=== PATIENT | female | born 1955 | race Two or more races ===

== ENCOUNTER 2016-08-04 16:29 | Emergency (ER) | payer OTHER ==
[~2016-08-04] VITALS: Ht 154.9 cm; Wt 65.8 kg
[2016-08-04 18:00] VITALS: BP 161/89
--- NOTE | 2016-08-04 19:59 | PHYS DOC ---
Past Medical History Past Medical History: Diabetes-Type II, High Cholesterol, Hypertension Past Surgical History: No Surgical History Additional Information: nonsmoker Alcohol Use: None Drug Use: None Adult General Chief Complaint Chief Complaint: MECHANICAL FALL HPI HPI Patient is a 61 year old female who presents with right shoulder pain for 4 days. She was working cleaning a house and standing on the stairs. She started to fall and reached out with her right arm to grab the railing to keep from falling. She did not actually fall. She reports intermittent tingling in the fingers of the right hand and decreased strength on the right. She has pain in the right wrist on the ulnar side. She denies numbness or pain in the neck. She is right-hand dominant. She sees a PCP at [facility] [place]. Review of Systems Review of Systems Constitutional: Denies fever or chills. [] Musculoskeletal: Denies back pain. Reports right shoulder and right wrist pain. Integument: Denies rash or skin lesions. [] Neurologic: Denies headache or numbness. Reports intermittent tingling and decreased strength in the right arm. Allergies Allergies Allergies Coded Allergies Type Severity Reaction Last Updated Verified No Known Drug Allergies 08/04/16 No Physical Exam Physical Exam Constitutional: Well developed, well nourished, no acute distress, non-toxic appearance. [] HENT: Normocephalic, atraumatic, oropharynx moist. [] Eyes: PERRLA, EOMI, conjunctiva normal, no discharge. [] Neck: Normal range of motion, no midline or paraspinal tenderness, supple, no stridor. [] Skin: Warm, dry, no erythema, no rash. [] Back: No midline tenderness, no CVA tenderness. Right rhomboid tenderness. Extremities: Right shoulder and right wrist tenderness, ROM decreased in the shoulder and wrist, no edema. Distal pulses equal bilaterally. Less than 2 second capillary refill in the fingers. Light touch sensation intact in the fingers. There is no scaphoid tenderness. Neurologic: Alert and oriented X 3, normal motor function, normal sensory function, no focal deficits noted. [] Psychologic: Affect normal, judgement normal, mood normal. [] Current Patient Data Vital Signs Vital Signs Date Time Temp Pulse Resp B/P Pulse Ox O2 Delivery O2 Flow Rate FiO2 08/04/16 18:00 98.5 77 18 96 Room Air 98.5 EKG EKG [] Radiology/Procedures Radiology/Procedures Three-view x-rays of the right wrist and shoulder reviewed and interpreted by myself with Dr. Tony. There are no acute fractures or dislocations. Course & Med Decision Making Course & Med Decision Making Pertinent Labs and Imaging studies reviewed. (See chart for details) Patient presents with right shoulder pain after nearly falling 3 days ago. On exam, she is neurovascularly intact without evidence of compartment syndrome. There are no acute fractures or dislocations on x-ray. She is discharged with a cockup wrist brace. She is given prescriptions for Robaxin and Ultram. She is given contact information for orthopedics. She has instructions to follow up with [facility] for Worker's Compensation. Return precautions were discussed. She verbalizes understanding and agrees with plan. Dragon Disclaimer Dragon Disclaimer This electronic medical record was generated, in whole or in part, using a voice recognition dictation system. Departure Departure Impression: Primary Impression: Right shoulder strain Additional Impression: Right wrist sprain Disposition: 01 HOME, SELF-CARE Condition: STABLE Referrals: BAILEY DELONG II, MD Patient Instructions: Shoulder Pain, [id number], Wrist Pain, [id number] Additional Instructions: There were no broken bones or dislocations seen on your x-rays. Please wear the provided wrist brace to help decrease your pain. To help your shoulder pain, apply heat, practice gentle stretching, and light massage. Avoid heavy lifting or bending. Please follow-up with [facility] for Worker's Compensation. Please follow-up with the orthopedic doctor listed below if your pain continues. Please take the prescribed medication as instructed. Do not operate heavy machinery or drive while taking these medications. Return to the emergency department if you have any new or concerning symptoms. Scripts Methocarbamol (Robaxin)500 Mg [id number] Mg PO QID #20 TAB Prov:STEVE WILSON 08/04/16 Tramadol Hcl (Ultram)50 Mg [id number] Mg PO Q6H PRN PAIN #20 TAB Prov:STEVE WILSON 08/04/16 Problem Qualifiers Primary Impression: Right shoulder strain Encounter type: initial encounter Qualified Code: S46.911A - Strain of unspecified muscle, fascia and tendon at shoulder and upper arm level, right arm , initial encounter Additional Impression: Right wrist sprain Encounter type: initial encounter Qualified Code: S63.501A - Unspecified sprain of right wrist, initial encounter STEVE WILSON Aug 04, 2016 19:59
[2016-08-04] MEDS ORDERED: TRAM-29 PO (20:01)
[2016-08-04] MEDS ORDERED: METH-37 PO (20:01)
--- NOTE | 2016-08-05 08:38 | RAD ---
Exam performed:3 views right wrist and right shoulder Indication:Right shoulder and wrist pain, status post fall 3 days ago Date of service:08/04/16. Comparison:None available 3 views right wrist findings: AP radiographs of the shoulder in internal and external rotation as well as a Y-view reveal the osseous structures to be intact and well aligned. Early degenerative changes are seen about the acromioclavicular joint. There is a linear calcification along the lateral aspect of the humeral head probably calcific tendinosis The articular margins are smooth. Impression: 1. 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 2. Probable calcific tendinosis End impression. 3 views right wrist findings: Normal alignment of the wrist joint is preserved. There is no acute fracture or dislocation. Diffuse soft tissue swelling is seen. No foreign body. Impression: 1. Diffuse soft tissue swelling without underlying bony abnormality.
== END 2016-08-04 20:10 | disposition home or self-care (01) ==
LOC: ER 16:29
DX: S46.911A Strain of unspecified muscle, fascia and tendon at shoulder and upper arm level, right arm, initial encounter (principal); S63.501A Unspecified sprain of right wrist, initial encounter; E11.9 Type 2 diabetes mellitus without complications; E78.00 Pure hypercholesterolemia, unspecified; I10 Essential (primary) hypertension; W10.9XXA Fall (on) (from) unspecified stairs and steps, initial encounter; Y93.89 Activity, other specified; Y92.89 Other specified places as the place of occurrence of the external cause; Y99.8 Other external cause status
CPT/HCPCS: 29125; 73030; 73110; 99284-25

== ENCOUNTER 2021-04-13 11:33 | Emergency (ER) | payer MEDICARE, OTHER ==
[~2021-04-13] VITALS: Ht 154.9 cm; Wt 61.0 kg
[~2021-04-13 11:33] MED LIST: METH-37 PO; TRAM-48 PO
--- NOTE | 2021-04-13 12:21 | PHYS DOC ---
Past Medical History Past Medical History: Diabetes-Type II, High Cholesterol, Hypertension Past Surgical History: No Surgical History Smoking Status: Never Smoker Alcohol Use: None Drug Use: None General Adult EDM: Chief Complaint: MECHANICAL FALL HPI: HPI: 66-year-old female presents the emergency department after she slipped and fell while cleaning a bathroom earlier today. She reports that she fell on her right elbow and has pain in her right elbow, right arm, and low back. She states that she has increased pain with movements. She denies any head trauma, loss consciousness, preceding symptoms. She denies chest pain, shortness of breath, abdominal pain, headache, or any other symptom. Review of Systems: Review of Systems: Constitutional: Negative except what was mentioned in HPI. Eyes: Negative except what was mentioned in HPI. HENT: Negative except what was mentioned in HPI. Respiratory: Negative except what was mentioned in HPI. Cardiovascular: Negative except what was mentioned in HPI. GI: Negative except what was mentioned in HPI. : Negative except what was mentioned in HPI. Musculoskeletal: Negative except what was mentioned in HPI. Integument: Negative except what was mentioned in HPI. Neurologic: Negative except what was mentioned in HPI. Heart Score: C/O Chest Pain: No Allergies: Allergies: Allergies Coded Allergies Type Severity Reaction Last Updated Verified No Known Drug Allergies 08/04/16 No Physical Exam: PE: Constitutional: No acute distress, non-toxic appearance. HENT: Atraumatic, bilateral external ears normal, nose normal. Eyes: PERRLA, EOMI, conjunctiva normal, no discharge. Neck: Normal range of motion, supple, no stridor. Cardiovascular: Heart rate regular rhythm. 2+ radial pulses Lungs & Thorax: No respiratory distress, symmetrical expansion. Abdomen: Soft, no tenderness Skin: Warm, dry. Back: Midline lumbar tenderness to palpation. No cervical or thoracic spinal tenderness. Extremities: Right medial elbow tenderness, right mid humerus tenderness, limited range of motion about the elbow, there is no wrist tenderness or shoulder tenderness to palpation. Left upper extremity within normal limits. Small ecchymosis over the left barba. Neurologic: Alert and oriented X 3, normal motor function, normal sensory function, no focal deficits noted. Non ataxic gait. GCS 15. Psychologic: Affect normal, judgment normal, mood normal. Current Patient Data: Vital Signs: Vital Signs Date Time Temp Pulse Resp B/P (MAP) Pulse Ox O2 Delivery O2 Flow Rate FiO2 04/13/21 11:55 99.2 70 18 176/81 (112) 98 Room Air 99.2 Radiology/Procedures: Radiology/Procedures: CT LUMBAR SPINE WO Date: 04/13/2021 12:39 PM Indication: back pain lumbar spine after fall Comparison: None. Technique: Helical CT images of the lumbar spine were obtained without contrast. Coronal and sagittal reformatted images were also performed. One or more of the following dose reduction techniques were utilized: Automated exposure control (AEC), Adjustment of mA and/or kV according to patient size, Use of iterative reconstruction technique such as ASiR, CT scan done according to ALARA and image gently/image wisely. Findings: The lumbar spine is normally aligned. No acute fracture. Vertebral body heights are maintained without compression deformity. No aggressive lytic or blastic osseous lesion. Moderate multilevel degenerative disc space height loss. Multilevel mild and moderate spinal canal stenosis secondary to multilevel disc bulging and facet a rthrosis. Multilevel mild and moderate neuroforaminal narrowing. Multilevel moderate facet arthrosis. Ovoid 3.8 cm lesion along the posterolateral aspect of the uterus on the left. Mild aortoiliac atherosclerotic disease. IMPRESSION: 1. No acute osseous abnormality of the lumbar spine. 2. Ovoid lesion along the left posterolateral aspect of the uterus measuring 3.8 cm, possibly exophytic fibroid or asymmetric adnexal fullness. This could be further characterized with a follow-up pelvic ultrasound Electronically signed by: Jayjay Oliveira MD (04/13/2021 1:21 PM) [facility] XR ELBOW COMPLETE_RIGHT 3+ VIEWS, XR HUMERUS_RT 2 VIEWS DATE: 04/13/2021 12:00 PM INDICATION: right elbow pain COMPARISON: None. FINDINGS: Tiny ossific fragment adjacent to the medial epicondyle. The joint spaces are maintained. IMPRESSION: Tiny ossific fragment adjacent to the medial epicondyle may represent an age indeterminate fracture fragment. Electronically signed by: Jayjay Oliveira MD (04/13/2021 1:13 PM) Course & Med Decision Making: Course & Med Decision Making Patient's x-rays show a possible tiny chip fracture however the medial distal humerus. There is no other fracture seen. Her CT lumbar results are as below with incidental finding of possible fibroid like mass in the pelvis. Patient has no knowledge of this in the past. She states that she rarely has abdominal pain, she has no abdominal pain today and no other further symptoms that are likely related to this. I advised her she needs to follow-up with an [facility] doctor as well as orthopedics in the next 2 to 3 weeks I discussed return preca utions and the patient understood completely. Patient's vital signs are stable she is appropriate for discharge at this time. She was provided a shoulder sling for support of her right upper extremity. court interpreter was used for all history taking, exams and reassessments Departure Departure Impression: Primary Impression: Elbow fracture, right Disposition: HOME / SELF CARE / HOMELESS Condition: STABLE Referrals: ANTWAN FARMER DONALD G Jr MD Patient Instructions: Elbow Fracture, Simple Additional Instructions: During your Emergency Department visit you had an imaging test performed (for example: an x-ray, CT scan, MRI, or ultrasound). Image tests help your doctors look for problems inside the body that can be dangerous. Sometimes, these image tests show surprising findings. We do not know how these findings will affect your health. In most people, these surprising findings do not cause any health problems. However, in some people, they can be an early health problem that is just starting. We recommend that you talk about these findings with a doctor that can monitor you over time. It is possible, but not likely, that this finding could be the early part of a problem that might affect your long-term health. In your case: - The image test that showed an unexpected finding was: CT lumbar spine - The finding that requires follow-up is: Possible fibroid like pelvic mass - The recommended time you should follow-up with a doctor is: 2 to 3 weeks with [facility] doctor; return to the emergency department as needed if you have abdominal pain You were seen in the emergency department for a musculoskeletal problem that will likely get better over time. You may utilize something called the "RICE" protocol (Rest, Ice, Compresses, Elevation) to help alleviate your pain: - Hold off on doing intense exercise that may make the pain worse. Sometimes gentle stretching can provide relief, but be careful to avoid further injury. It is important to perform gentle range of motion exercises to prevent stiff joints and chronic pain. - Use ice packs over the affected area to help decrease your pain. Ice can work as a numbing agent over your painful area. For the first 24 hours, apply ice 2-4 times per day for a maximum 15-20 minutes each time. Ice should be in a plastic bag. - You may use warm compresses to help improve blood flow and decrease swelling. Alternating with ice packs and warm compresses works well. - You may elevate the affected area to help improve drainage and reduce swelling, which will also help your pain. NICANOR CARPENTER DO Apr 13, 2021 12:21
[2021-04-13] MEDS ORDERED: HYDROcodone/APAP 5/325MG 1 TAB TABLET PO ONE (12:30)
--- NOTE | 2021-04-13 13:16 | RAD ---
XR ELBOW COMPLETE_RIGHT 3+ VIEWS, XR HUMERUS_RT 2 VIEWS DATE: 04/13/2021 12:00 PM INDICATION: right elbow pain COMPARISON: None. FINDINGS: Tiny ossific fragment adjacent to the medial epicondyle. The joint spaces are maintained. IMPRESSION: Tiny ossific fragment adjacent to the medial epicondyle may represent an age indeterminate fracture f ragment. Electronically signed by: Jayjay Oliveira MD (04/13/2021 1:13 PM) [facility]
--- NOTE | 2021-04-13 13:24 | RAD ---
CT LUMBAR SPINE WO Date: 04/13/2021 12:39 PM Indication: back pain lumbar spine after fall Comparison: None. Technique: Helical CT images of the lumbar spine were obtained without contrast. Coronal and sagitta l reformatted images were also performed. One or more of the following dose reduction techniques were utilized: Automated exposure control (AEC), Adjustment of mA and/or kV according to patient size, Us e of iterative reconstruction technique such as ASiR, CT scan done according to ALARA and image gentl y/image wisely. Findings: The lumbar spine is normally aligned. No acute fracture. Vertebral body heights are maintained withou t compression deformity. No aggressive lytic or blastic osseous lesion. Moderate multilevel degenerative disc space height loss. Multilevel mild and moderate spinal canal st enosis secondary to multilevel disc bulging and facet arthrosis. Multilevel mild and moderate neurofo raminal narrowing. Multilevel moderate facet arthrosis. Ovoid 3.8 cm lesion along the posterolateral aspect of the uterus on the left. Mild aortoiliac athero sclerotic disease. IMPRESSION: 1. No acute osseous abnormality of the lumbar spine. 2. Ovoid lesion along the left posterolateral aspect of the uterus measuring 3.8 cm, possibly exophyt ic fibroid or asymmetric adnexal fullness. This could be further characterized with a follow-up pelvi c ultrasound Electronically signed by: Jayjay Oliveira MD (04/13/2021 1:21 PM) [facility]
[2021-04-13 14:00] VITALS: BP 136/70
== END 2021-04-13 14:15 | disposition home or self-care (01) ==
LOC: ER 11:33
DX: S42.401A Unspecified fracture of lower end of right humerus, initial encounter for closed fracture (principal); S80.12XA Contusion of left lower leg, initial encounter; E11.9 Type 2 diabetes mellitus without complications; E78.00 Pure hypercholesterolemia, unspecified; I10 Essential (primary) hypertension; W01.0XXA Fall on same level from slipping, tripping and stumbling without subsequent striking against object, initial encounter; Y93.89 Activity, other specified; Y92.89 Other specified places as the place of occurrence of the external cause; Y99.8 Other external cause status
CPT/HCPCS: 72131; 73060; 73080; 99284

== ENCOUNTER → 2021-08-09 | Outpatient (CLI) | payer MEDICARE ==
--- NOTE | 2021-08-10 13:50 | RAD ---
EXAM: ULTRASOUND PELVIS INDICATION: Pelvic pain. COMPARISON: None. TECHNIQUE: Transabdominal sonography was performed. FINDINGS: The uterus measures 6.8 x 5 x 2.4 cm. The endometrium measures 0.2 cm in thickness. The right ovary m easures 2 x 1.3 x 1.3 cm and the left ovary 2 x 1.7 x 1.5 cm. Within normal limits thickness and echotexture of the endometrium for patient age. No focal myometria l abnormality. No fluid along the endometrial canal. Normal Doppler flow to both ovaries. No complex cyst or mass at either adnexa. No free pelvic fluid. Unremarkable urinary bladder. IMPRESSION: Unremarkable ultrasound evaluation of the pelvis. Electronically signed by: CHARISSE JUNIOR MD (08/10/2021 1:47 PM) [id number]
== END ==
LOC: US 15:03
PROVIDERS: ATTEND Family Medicine
DX: R10.2 Pelvic and perineal pain (principal)
CPT/HCPCS: 76856